=== PATIENT | male | born 1965 | race Caucasian/White ===

== ENCOUNTER → 2017-11-03 | Outpatient (CLI) | payer OTHER, MEDICARE ==
[~2017-11-03] MED LIST: AMITRIPTYLINE H10 M3 PO; DELTASONE20 MG PO; FLOMAX0.4 MG PO; GENTAMICIN SU3 MG/ML OPHTHALMIC; LOPRESSOR25; METHIMAZOLE10 MG; MOBIC7.5 MG; NEURONTIN 300300 M1 PO; NORCO 10-325 T1 EACH; NORCO 10-325 T1 EACH PO; NORVASC5 MG; ONDANSETRON HCL4 M2 PO; PERCOCET 7.5-31 EACH PO; TRAMADOL 50 MG50 MG; ZYRTEC10 MG
--- NOTE | 2017-11-11 14:16 | PAINCON ---
[address] [address] PAIN MANAGEMENT CONSULTATION Name: JUANITA CONDE Melissa [facility] [id number] Admission: 11/03/17 Attend Phys: Poppy Allen MD Discharge: Date of : 69 Report #: [id number] THIS REPORT FOR: //name// CC: Katia AGUILAR MD DATE OF SERVICE: 11/03/2017 PRIMARY CARE PHYSICIAN: Maximo Aguilar MD CHIEF COMPLAINT: Pain in the back, knee and shoulder. HISTORY OF PRESENT ILLNESS: The patient is a 52-year-old gentleman who has a history of scleroderma. At this juncture, he is having pain and discomfort involving his right shoulder. It also involves his right knee. He had surgery on his right knee about 2 years ago and had surgery on his right shoulder on 3 occasions. The last surgery was in 2014. He feels that his right knee pain continues to worsen. He had knee manipulation about 1-1/2 years ago. Pain continues to be problematic. He rates it as a 5/10. Has used hydrocodone 10 mg at bedtime. Also, has been using Ultram to help curb the pain. He feels that the pain is about 40% improved with his current medical regimen. He has tried a number of other medications and treatments. He feels that Biofreeze is sometimes helpful. Describes his discomfort as continuous and aching. He has been disabled as a result of scleroderma since about age 28. Has used gabapentin in the past. He has used some compounded agents in the past without significant improvement. Has had some problems with kidney stones. He has undergone back surgeries in the past as well. He has come to the pain clinic for evaluation and to see if there were options, which would be helpful with his chronic pain. ALLERGIES: No known drug allergies. CURRENT MEDICATIONS: Norvasc 5 mg, Zyrtec 10 mg, hydrocodone 10/325 1 tablet daily, metoprolol 25 mg b.i.d., tramadol 50 mg q.4 hours p.r.n. MEDICATIONS USED IN THE PAST: Arava, Mobic. PAST MEDICAL HISTORY: Scleroderma, hyperglobulinemia, osteoporosis, idiopathic thrombocytopenic purpura, carpal tunnel syndrome bilateral, degenerative facet arthropathy of the lumbar spine, lumbar radiculopathy, status post L5 hemilaminectomy, hypothyroid and renal stones. PAST SURGICAL HISTORY: Appendectomy 1996, back surgery 2005, kidney stone 2017, cholecystectomy 2005, surgery on his fingers 2000, bilateral carpal tunnel releases, shoulder replacement 2005, 2012 [place] [address] [address] PAIN MANAGEMENT CONSULTATION Name: JUANITA CONDE Melissa [facility] [id number] Admission: 11/03/17 Attend Phys: Poppy Allen MD Discharge: Date of : 69 Report #: [id number] SOCIAL HISTORY: He is a disabled gentleman since 2000. REVIEW OF SYSTEMS: Generally in good health, recent weight changes, wears glasses, heart trouble, swelling in the feet, hands and ankles, history of kidney stones, cold and heat intolerance, joint pain, joint stiffness, joint weakness, muscle weakness, difficulty walking, head injury, memory loss, confusion, slow to heal, bleeding tendencies. LABORATORY DATA: No new laboratory values are available at the time of our interview. PAIN CLINIC ASSESSMENT: 1. Osteoarthritis. The patient has some arthritic changes in his shoulder, low back and involving his hands. 2. Height 5 feet 8 inches, weight 192 pounds, BMI is 29. 3. Vital signs: Blood pressure 126/87, heart rate 94, respiratory rate 16, room air saturation 97%, temperature 98.5. 4. Pain intensity judged to be 6-9 depending on the activity level, described as 9 at night. 5. Fall risk. The patient has not fallen in the last 3 months. 6. Blood thinner. The patient is not on a blood thinning medication. 7. History of hypertension. The patient has not been treated for hypertension. 8. Opioid medications greater than 6 weeks. The patient is on a chronic regimen of hydrocodone on a daily basis. 9. Risk assessment tool. 10. Functional assessment tool. 11. Recreational drug use. The patient denies use of recreational drugs. 12. Tobacco. The patient denies use of tobacco. 13. Alcohol. The patient rarely uses alcoholic beverages. PHYSICAL EXAMINATION: GENERAL: The patient is a well-developed, well-nourished, white male, appears his stated age. He is alert and oriented x 3. Affect is appropriate. Speech is fluent. HEENT: Normocephalic, atraumatic. Extraocular eye muscles intact. Sclerae nonicteric. Mucous membranes are moist. NECK: Without adenopathy or JVD. EXTREMITIES: Good range of motion. Upper muscle strength is judged to be 5/5 for the major muscle groups. Deep tendon reflexes are +2 bilaterally. The patient has significant constriction with deviation of his fingers as a result of scleroderma. Lower extremity muscle strength is judged to be 5/5 for the major muscle groups in the lower extremity. The patient has pain and discomfort involving the right knee. Has pain and discomfort involving his right shoulder. HEART: Regular rate. ABDOMEN: Nontender. [facility] [address] [place] [address] PAIN MANAGEMENT CONSULTATION Name: JUANITA CONDE Room: [facility]#: [id number] Admission: 11/03/17 Attend Phys: Poppy Allen MD Discharge: Date of : 69 Report #: [id number] LUNGS: Clear to auscultation. MUSCULOSKELETAL: Without significant scoliosis, kyphosis or lordosis. The patient has a well-healed scar in the lower portion of his back and the lumbar area, scars in the right knee area secondary to past surgeries. IMPRESSION: 1. Chronic right shoulder pain. 2. Chronic right knee pain. 3. History of lumbar radiculopathy, status post L5-S1 hemilaminectomy. 4. Multilevel degenerative facet osteoarthropathy of the lumbar spine. 5. Scleroderma. 6. Hyperglobulinemia. 7. Osteoporosis. 8. History of idiopathic thrombocytopenic purpura. 9. History of bilateral carpal tunnel releases. RECOMMENDATIONS: We discussed treatment options with the patient. At this juncture, he is using hydrocodone and Ultram. The patient states that he does not recall using Neurontin. We will start the patient on Neurontin 300 mg 1 p.o. every day and increase it to the level of 900 mg daily. We explained that oftentimes these medications take some time to build up in the system. Maybe 4-6 weeks before we note any improvement. The patient continues to have pain and discomfort as well as problem sleeping. The patient will be started on amitriptyline. We explained the use of this anti-depressive medication. Oftentimes, it is helpful with patients who are having chronic pain that works in a number of situations. He is also having some problem with sleeping. We will have him take it at bedtime that is one of the benefits from this medication as well as increased sleep. He will call us if he has any problems with his medications. He will continue with Meloxicam 7.5 mg. We will continue with hydrocodone 10/325. The patient also may continue use of tramadol 50 mg every 4-6 hours. He will call us if he has any problems with his medications. We would like to thank you for letting us participate in his care. We hope he continues to improve. <ELECTRONICALLY SIGNED> By: Poppy Allen MD 11/11/17 [id number] [id number]. Vimal Allen MD /[facility]
== END ==
LOC: M.PC 04:46
DX: M54.5 Low back pain (principal); M25.511 Pain in right shoulder; M25.561 Pain in right knee; G89.29 Other chronic pain; M81.0 Age-related osteoporosis without current pathological fracture; M34.9 Systemic sclerosis, unspecified; R77.1 Abnormality of globulin